=== PATIENT | male | born 1970 | race American Indian/Alaskan Native ===

== ENCOUNTER 2016-11-23 01:09 | Emergency (ER) | payer SELFPAY ==
[2016-11-23 01:39] VITALS: RESP 20; O2SAT 96
[2016-11-23] MEDS ORDERED: Bacitracin 500 Units/gm Oint Foilpak UD TOP ONE (01:50)
[2016-11-23] MEDS ORDERED: Lidocaine 1% Inj (20ml) INFIL STA (01:50)
[2016-11-23] MEDS ORDERED: Bacitracin 500 Units/gm Oint Foilpak UD ONE (01:56)
[2016-11-23] MEDS ORDERED: Lidocaine 2% Inj (20ml) ONE (01:57)
--- NOTE | 2016-11-23 02:09 | C.PDOC ---
History Of Present Illness 46 year old patient presents to the ED complaining of a laceration to the left second finger. Patient reports he was changing a tired on a car and he got cut by one of the tools. Patient denies limited movement, active bleeding, fever, numbness, or weakness. Time Seen by Provider: 11/23/16 01:39 Chief Complaint (Nursing): Abnormal Skin Integrity History Per: Patient History/Exam Limitations: no limitations Onset/Duration Of Symptoms: Hrs (earlier today) Current Symptoms Are (Timing): Still Present Location Of Injury: Left: Hand (2nd finger) Quality Of Symptoms: Painful Severity: Mild Pain Scale Rating Of: 3 Recent travel outside of the [place]: No Past Medical History Reviewed: Historical Data, Nursing Documentation, Vital Signs Vital Signs: Last Vital Signs Temp 98 F 11/23/16 02:23 Pulse 77 11/23/16 02:23 Resp 20 11/23/16 02:23 BP 146/84 11/23/16 02:23 Pulse Ox 96 11/23/16 02:39 Family History: States: Unknown Family Hx - Social History Hx Alcohol Use: Yes Hx Substance Use: No - Immunization History Hx Tetanus Toxoid Vaccination: No Hx Influenza Vaccination: No Hx Pneumococcal Vaccination: No Review Of Systems Except As Marked, All Systems Reviewed And Found Negative. Constitutional: Negative for: Fever Skin: Positive for: Other (laceration to left 2nd digit) Neurological: Negative for: Weakness, Numbness Physical Exam - Physical Exam Appears: Non-toxic, No Acute Distress Skin: Warm, Dry Cardiovascular: Rhythm Regular Extremity: Capillary Refill (<2 seconds), No Deformity, Other (left 2nd digit: ( +)3 cm curved laceration to the left index finger (-)active bleeding (+)<2 second capillary refill (-)deformity (+)normal tendon (+)limited ROM due to pain ) Neurological/Psych: Oriented x3, Normal Speech, Normal Cognition, Normal Sensation Gait: Steady ED Course And Treatment O2 Sat by Pulse Oximetry: 96 (RA) Pulse Ox Interpretation: Normal Laceration - Laceration Repair left 2nd finger Wound Length (In cm): 3 Description Of Wound: Irregular (curved) Anesthesia: Lidocaine 1% Wound Examination: Irrigated With Saline, No FB With Wound Exploration, No Tendon Injury With Wound Exploration Wound Closure: Suture Suture Technique And Material Used: Interrupted (4), Nylon (4-0) Wound Complexity: Simple Medical Decision Making Medical Decision Making: Impression: 46 y/o male with left 2nd finger laceration Plan: * Tetanus * Laceration repair * Reassess and disposition Progress: Patient tolerated the procedure well. Disposition - Disposition Disposition: HOME/ ROUTINE Disposition Time: 02:11 Condition: STABLE Additional Instructions: Remove dressing in 24 hours. Keep area clean and dry. May wash gently with soap and water, do not use alcohol or iodine solution. Change dressing 1-2 times daily. Return to ER if fever occurs, redness or swelling around wound, pus in the wound. 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 - Scribe Statement The provider has reviewed the documentation as recorded by the Scribe Abbey Recinos All medical record entries made by the Scribe were at my direction and personally dictated by me. I have reviewed the chart and agree that the record accurately reflects my personal performance of the history, physical exam, medical decision making, and the department course for this patient. I have also personally directed, reviewed, and agree with the discharge instructions and disposition.
[2016-11-23 02:38] VITALS: BP 146/84; PULSE 77; TEMP 98
== END 2016-11-23 02:37 | disposition home or self-care (01) ==
LOC: C.ER 01:09
DX: S61.211A Laceration without foreign body of left index finger without damage to nail, initial encounter (principal); W27.8XXA Contact with other nonpowered hand tool, initial encounter; Y93.89 Activity, other specified; Y92.89 Other specified places as the place of occurrence of the external cause

== ENCOUNTER 2018-04-19 18:34 | Emergency (ER) | payer BC, MEDICAID ==
[2018-04-19 18:54] VITALS: BP 144/89; PULSE 92; RESP 18; TEMP 98.4; O2SAT 98
--- NOTE | 2018-04-19 19:28 | C.PDOC ---
History Of Present Illness 48 year old male presents to the ED c/o swelling to hi right elbow for he past month. Patient states he has not gone to see his PMD yet for these symptoms. Patient denies injury, fall, trauma, fever, chill, weakness, numbness. Time Seen by Provider: 04/19/18 19:19 Chief Complaint (Nursing): Upper Extremity Problem/Injury History Per: Patient History/Exam Limitations: no limitations Onset/Duration Of Symptoms: Persistent (month) Current Symptoms Are (Timing): Still Present Quality: "Pain" Recent travel outside of the [place]: No Additional History Per: Patient Past Medical History Reviewed: Historical Data, Nursing Documentation, Vital Signs Vital Signs: Last Vital Signs Temp 98.4 F 04/19/18 18:52 Pulse 92 H 04/19/18 18:52 Resp 18 04/19/18 18:52 BP 144/89 04/19/18 18:52 Pulse Ox 98 04/19/18 23:34 - Medical History PMH: No Chronic Diseases Surgical History: No Surg Hx Family History: States: Unknown Family Hx - Social History Hx Alcohol Use: No Hx Substance Use: No - Immunization History Hx Tetanus Toxoid Vaccination: No Hx Influenza Vaccination: No Hx Pneumococcal Vaccination: No Review Of Systems Constitutional: Negative for: Fever, Chills Musculoskeletal: Positive for: Arm Pain (swelling). Negative for: Shoulder Pain , Back Pain, Hand Pain Skin: Negative for: Rash Neurological: Negative for: Weakness, Numbness, Headache, Dizziness Physical Exam - Physical Exam Appears: Non-toxic, No Acute Distress Skin: Normal Color, Warm, Dry Head: Atraumatic, Normacephalic Eye(s): bilateral: Normal Inspection Extremity: Normal ROM, No Tenderness, Capillary Refill (< 2 seconds), No Deformity, Other (effusion to right olecranon, no erythema) Extremity: Bilateral: Atraumatic, Normal Color And Temperature Pulses: Left Radial: Normal, Right Radial: Normal Neurological/Psych: Oriented x3, Normal Speech, Normal Motor, Normal Sensation Gait: Steady ED Course And Treatment O2 Sat by Pulse Oximetry: 98 (ON RA) Pulse Ox Interpretation: Normal Progress Note: Patient advised to take NSAIDs and to follow up with his PMD for further evaluation. 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 - Scribe Statement The provider has reviewed the documentation as recorded by the Scribe Arron Pennington All medical record entries made by the Jesseniaibdaniel were at my direction and personally dictated by me. I have reviewed the chart and agree that the record accurately reflects my personal performance of the history, physical exam, medical decision making, and the department course for this patient. I have also personally directed, reviewed, and agree with the discharge instructions and disposition.
== END 2018-04-19 19:34 | disposition home or self-care (01) ==
LOC: C.ER 18:34
DX: M71.521 Other bursitis, not elsewhere classified, right elbow (principal)